=== PATIENT | female | born 1990 | race American Indian/Alaskan Native ===

== ENCOUNTER 2018-03-10 01:37 | Inpatient (IN) | payer OTHER ==
[2018-03-10] MEDS ORDERED: LACTATED RINGERS 1,000 ML IV ONE (03:12)
[2018-03-10] MEDS ORDERED: SUBLIMAZE IV ONE ×2 (03:12→06:10)
[2018-03-10] MEDS ORDERED: POLYCILLIN/NS 2 GM/100 ML 2 GM/100 ML BAG IV ONE (03:20)
[2018-03-10] MEDS ORDERED: POLYCILLIN/NS 2 GM/100 ML 2 GM/100 ML BAG IV SCH (03:30)
[2018-03-10] MEDS: LACTATED RINGERS 1,000 ML IV SCH ×2 (03:32→08:44)
[2018-03-10] MEDS ORDERED: PITOCin/NS 30 UNIT/500ML 30 UNITS/500 ML BAG IV SCH (04:00)
[2018-03-10 04:01] LABS: Hematocrit 33.2 % (30.3-42.9); Hemoglobin 11.1 gm/dl (10.1-14.3); Mean Corpuscular HGB Conc 34 % (30-34); Mean Corpuscular Volume 75 fl (79-97); Platelet Count 396 K/mm3 (140-440); Red Blood Count 4.44 M/mm3 (3.65-5.03); Red Cell Distribution Width 17.8 % (13.2-15.2)
[2018-03-10 04:07] LABS: Mean Corpuscular Hemoglobin 25 pg (28-32)
[2018-03-10] MEDS ORDERED: SUBLIMAZE ONE ×2 (06:09→12:50)
[2018-03-10] MEDS ORDERED: AMPICILLIN/NS 1 GM/50 ML 1 GM/50 ML BAG IV SCH (07:30)
[2018-03-10] MEDS ORDERED: SUBLIMAZE IV SCH (08:00)
[2018-03-10] MEDS ORDERED: PITOCin/NS 20 UNIT/1000ML DRIP 20,000 MILLIUNITS/1,000 ML BAG IV ONE (08:37)
[2018-03-10] MEDS ORDERED: STADOL IV PRN (08:48)
[2018-03-10] MEDS ORDERED: ePHEDrine SULFATE IV PRN (10:31)
[2018-03-10] MEDS ORDERED: NARCAN 2 MG/2 ML IV PRN (10:31)
[2018-03-10] MEDS ORDERED: fentaNYL-BUPIV 2 MCG/ML-0.125% 200 MCG/100 ML BAG EPIDURAL SCH (11:00)
--- NOTE | 2018-03-10 11:06 | Anesthesia Consultation ---
Anesthesia Consult and Med Hx Date of service: 03/10/18 - Airway Anesthetic Teeth Evaluation: Good ROM Head & Neck: Adequate Mental/Hyoid Distance: Adequate Mallampati Class: Class II Intubation Access Assessment: Probably Good - Pulmonary Exam CTA: Yes - Cardiac Exam Cardiac Exam: RRR - Pre-Operative Health Status ASA Pre-Surgery Classification: ASA2 Proposed Anesthetic Plan: Epidural, Spinal - Pulmonary Hx Smoking: No Hx Asthma: No COPD: No Hx Pneumonia: No - Cardiovascular System Hx Hypertension: No - Central Nervous System Hx Seizures: No Hx Psychiatric Problems: No - Endocrine Hx Renal Disease: No Hx End Stage Renal Disease: No Hx Hypothyroidism: No Hx Hyperthyroidism: No - Hematic Hx Anemia: No Hx Sickle Cell Disease: No - Other Systems Hx Alcohol Use: Yes (occasional, social)
[2018-03-10] MEDS ORDERED: BRETHINE ONE (11:11)
[2018-03-10] MEDS ORDERED: DEMEROL IV PRN (11:28)
[2018-03-10] MEDS ORDERED: BICITRA PO ONE (11:28)
[2018-03-10] MEDS ORDERED: PEPCID IV ONE (11:28)
[2018-03-10] MEDS ORDERED: REGLAN IV ONE (11:28)
[2018-03-10] MEDS ORDERED: XYLOCAINE MPF 2% ONE ×4 (11:52→13:49)
--- NOTE | 2018-03-10 11:58 | History and Physical Report ---
History of Present Illness Date of examination: 03/10/18 Date of admission: 03/10/18 01:44 Chief complaint: rupture of membranes History of present illness: Pt is a 28 year old primigravida TOY 03/15/18 at 39w2d who presents with rupture of membranes last night around 2300 pm. She was noted to be 1 cm dilated on admission, so pitocin induction was started. She denies vaginal bleeding. She has had care at [facility] since 6 wks complicated by chlamydia treated with a negative test of cure in Aug 2017, sickle cell trait and GBS positive status. 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: chlamydia (treated with negative test of cure ) Family/Genetic History: diabetes Social history: no significant social history - Obstetrical History Expected Date of Delivery: 03/15/18 Actual Gestation: 39 Week(s) 2 Day(s) : 1 Medications and Allergies Allergies Allergy/AdvReac Type Severity Reaction Status Date / Time No Known Allergies Allergy Verified 03/10/18 03:17 Home Medications Medication Instructions Recorded Confirmed Last Taken Type No Known Home Medications [No 03/10/18 03/10/18 Unknown History Reported Home Medications] Active Meds: Active Medications Butorphanol Tartrate (Stadol) 2 mg IV Q2H PRN PRN Reason: Labor Pain Last Admin: 03/10/18 08:58 Dose: 2 mg Ephedrine Sulfate (Ephedrine Sulfate) 10 mg IV Q2M PRN PRN Reason: Hypotension Fentanyl (Sublimaze) 100 mcg IV Q2HR [facility] Lactated Ringer's (Lactated Ringers) 1,000 mls @ 125 mls/hr IV DIRECT [facility] Last Admin: 03/10/18 08:44 Dose: 999 mls/hr Oxytocin/Sodium Chloride (Pitocin/Ns 30 Unit/500ml) 30 units in 500 mls @ 1 mls /hr IV TITR [facility]; Protocol Last Titration: 03/10/18 07:30 Dose: 4 milliunits/min, 4 mls/hr Ampicillin Sodium (Ampicillin/Ns 1 Gm/50 Ml) 1 gm in 50 mls @ 100 mls/hr IV Q4H [facility]; Protocol Last Admin: 03/10/18 08:43 Dose: 100 mls/hr Fentanyl/Bupivacaine/Sodium Chlor (Fentanyl-Bupiv 2 Mcg/Ml-0.125%) 200 mcg in 100 mls @ 12 mls/hr EPIDURAL TITR [facility]; Protocol Cefazolin Sodium (Ancef/Sterile Water 2 Gm/20 Ml) 2 gm in 20 mls @ 80 mls/hr IV PREOP NR; Protocol Stop: 03/10/18 23:00 Lactated Ringer's (Lactated Ringers) 1,000 mls @ 2,250 mls/hr IV PREOP [facility] Stop: 03/11/18 12:27 Oxytocin/Sodium Chloride (Pitocin/Ns 20 Unit/1000ml Drip) 20 units in 1,000 mls @ 0 mls/hr IV TITR [facility] Meperidine HCl (Demerol) 25 mg IV ONCE PRN PRN Reason: Shivering Naloxone HCl (Narcan 2 Mg/2 Ml) 0.2 mg IV Q5M PRN PRN Reason: Respiratory sedation Review of Systems All systems: negative - Vital Signs Vital signs: Vital Signs Pulse Pulse Ox 113 H 98 03/10/18 01:53 03/10/18 01:53 Temp Pulse Resp BP Pulse Ox 99.0 F 114 H 22 130/69 78 L 03/10/18 07:15 03/10/18 11:59 03/10/18 07:15 03/10/18 11:59 03/10/18 10:56 - Physical Exam Breasts: Positive: deferred Cardiovascular: Regular rate Lungs: Positive: Clear to auscultation Abdomen: Positive: soft (gravid ) Uterus: Positive: enlarged (gravid ) Extremities: Positive: normal - Obstetrical FHR: category 2 Uterine Contraction Monitor Mode: External Cervical Dilatation: 7 Cervical Effacement Percentage: 80 station: -1 Uterine Contraction Frequency (min): q 1-2 min Uterine Contraction Pattern: Regular Uterine Tone Measurement Phase: Resting Uterine Contraction Intensity: Moderate Results Result Diagrams: 03/10/18 02:10 Abnormal lab results 03/10/18 Range/Units 02:10 WBC 14.5 H (4.5-11.0) K/mm3 MCV 75 L (79-97) fl MCH 25 L (28-32) pg RDW 17.8 H (13.2-15.2) % All other labs normal. Assessment and Plan A: IUP at 39w2d Active labor PROM GBS positive status H/o Chlamydia this , treated with negative test of cure P: Admit to labor and delivery GBS prophylaxis Pitocin augmentation Closely monitor maternal and status
--- NOTE | 2018-03-10 11:59 | Event Note ---
Date: 03/10/18 Pt with tachysystole and deceleration to 50s. Pt given terbutaline with slow return to baseline 125. FSE placed. Continue to monitor clinical status closely.
[2018-03-10] MEDS ORDERED: LACTATED RINGERS 1,000 ML IV SCH (12:00)
[2018-03-10] MEDS ORDERED: ANCEF/STERILE WATER 2 GM/20 ML 2 GM/20 ML SYRINGE IV NR (12:00)
[2018-03-10] MEDS ORDERED: PITOCin/NS 20 UNIT/1000ML DRIP 20 UNITS/1,000 ML BAG IV SCH ×2 (12:00→17:57)
[2018-03-10] MEDS ORDERED: NACL 0.9% IR ONE (12:30)
[2018-03-10] MEDS ORDERED: WATER FOR IRRIG STERILE IR ONE (12:30)
[2018-03-10] MEDS ORDERED: VERSED ONE (12:48)
[2018-03-10] MEDS ORDERED: KETALAR ONE (12:55)
--- NOTE | 2018-03-10 13:46 | Procedure Note ---
OB Delivery Note - Delivery Date of Delivery: 03/10/18 Surgeon: RAVINDER BLACKWOOD Estimated blood loss: other (1200 mL) - Section Preop diagnosis: nonreassuring FHR tracing Postop diagnosis: other (Same, CPD) section procedure: section Disposition: PACU Complications: intra-op hemorrhage, uterine atony Narrative: Please see operative report. - A at 1 minute: 8 at 5 minutes: 9 Infant Gender: Male (3852g (8lb 7.8 oz) @ 1250 pm)
--- NOTE | 2018-03-10 13:54 | Operative Report ---
Operative Report Operative Report: Date of procedure: March 10, 2018 Preoperative diagnosis: 1) IUP at 39w2d 2) Nonreassuring heart tones 3) PROM Postoperative diagnosis: Same 4) Cephalopelvic disproportion Procedure: Primary low transverse section Surgeon: Laura Ocasio M.D. Anesthesia: Epidural Findings: 1) Viable male , Apgars 8 and 9, weight 3852g, (8 lb 7.8 oz) in cephalic presentation, loose nuchal cord x 1 2) Normal-appearing uterus ovaries and tubes Estimated blood loss: 1200 mL IV fluids: 1300 mL Urine output: 350 mL, clear at the end of the procedure Drains: Leiva to gravity Specimens: Placenta to pathology Complications: Uterine atony treated with an additional 20 units of pitocin in the IV fluids, intraoperative hemorrhage Disposition: Stable to PACU Indication for procedure: Pt is a 28 year old primigravida at 39w2d who was admitted with rupture of membranes. She made cervical change to 8 cm dilation whenthe FHTs began to have deep variable decelerations to the 50-60s with slow return to baseline remote from delivery. The decision was made to proceed with delivery. Operation in detail: After the risks, benefits, alternatives and complications were explained to the patient she gave informed consent for the procedure. She was subsequently taken to the operating room where epidural anesthesia was noted to be adequate. She was subsequently placed in the dorsal supine position with leftward tilt and prepped and draped in a normal sterile fashion. heart tones were noted to be in the 145s prior to incision. A timeout was performed. A Pfannenstiel skin incision was made with the knife and carried down to the layer of the fascia with the Bovie. The fascia was incised in the midline and the fascial incision was extended bilaterally with the Bovie. Attention was then turned to the superior aspect of the incision which was grasped with two Kochers, tented up, and dissected off the rectus muscles. Attention was then turned to the inferior aspect of the incision which was grasped with two Kochers , tented up and dissected off the rectus muscles. The rectus muscles were then in the midline and partially transected for adequate visualization. The peritoneum was then entered bluntly. The peritoneal incision was extended with good visualization of the bladder. The peritoneal incision was then stretched. An Kem self-retaining retractor was placed for visualization. The bladder blade was placed. The vesicouterine peritoneum was grasped with smooth pickups and incised with Metzenbaum scissors. Metzenbaum scissors were used to extend the incision bilaterally. The bladder flap was then created digitally and the bladder blade was replaced. A transverse incision was made in the lower uterine segment with a knife and extended bilaterally with the bandage scissors. The head was delivered without difficulty followed by shoulders and body. was bulb suctioned at delivery. The cord was clamped and cut and the was handed to NICU staff in attendance. Cord blood was collected. The placenta was then delivered manually. The uterus was then exteriorized and cleared of all clots and debris. The uterus was noted to be atonic. An additional 20 units of pitocin were added to the IV fluids with improvement in uterine tone. The hysterotomy was then reapproximated with 0 Vicryl in a running locked fashion. A second layer of the same suture was used in imbricating fashion. Additional figure of eights of 2-0 Vicryl were used on the left side of the hysterotomy to achieve hemostasis. The hysterotomy was inspected and hemostasis was noted. The Kem self-retaining retractor was removed. The gutters were irrigated and cleared of all clots and debris. The hysterotomy was again inspected and noted to be hemostatic. Surgicel was placed over the hysterotomy. The peritoneum was reapproximated with 2-0 Vicryl in a running fashion incorporating the rectus muscles. The cut edges of the rectus muscles were covered with Surgicel. The fascia was reapproximated with 0 Vicryl in a running fashion. The subctaneous tissue was reapproximated with 3-0 Vicryl in a running fashion. The skin was reapproximated with 4-0 Vicryl in a subcuticular fashion. The incision was then covered with steri strips and a pressure dressing. The procedure was then ended. The patient tolerated the procedure well and was taken to the PACU in stable condition. All instrument, lap, and needle counts were correct 3. The patient was noted to be tachycardic to the 140-150s during the case and to be hypertensive. She will have a CBC, PIH panel and TSH in the PACU.
[2018-03-10] MEDS ORDERED: PHENERGAN PO PRN (14:03)
[2018-03-10] MEDS ORDERED: NARCAN 0.4 MG/1 ML IV PRN ×2 (14:03→17:57)
[2018-03-10] MEDS ORDERED: PHENERGAN PR PRN (14:03)
[2018-03-10] MEDS ORDERED: ZOFRAN IV PRN ×2 (14:03→17:57)
[2018-03-10] MEDS ORDERED: DILAUDID IV PRN ×2 (14:03)
--- NOTE | 2018-03-10 14:05 | Post Anesthesia Evaluation ---
- Post Anesthesia Evaluation Patient Participated: Yes Airway Patent: Yes Stable Respiratory Function: Yes Nausea/Vomiting: No Temp > 96.8F: Yes Pain Manageable: Yes Adequeate Hydration: Yes Anesthesia Complications: No Block Receding Appropriately: Yes Other Comments: episode of intraoperative tachycardia currently controlled with intraoperative labetalol
[2018-03-10] MEDS ORDERED: NORMODYNE IV PRN (14:06)
[2018-03-10] MEDS ORDERED: MAGNESIUM SULFATE 4GM/100ML 4 GM/100 ML BAG IV ONE ×2 (14:33→17:57)
[2018-03-10] MEDS ORDERED: MAGNESIUM SULFATE 40GM/1000ML 40 GM/1,000 ML BAG IV ONE (14:37)
[2018-03-10] MEDS ORDERED: MAGNESIUM SULFATE 40GM/1000ML 40 GM/1,000 ML BAG IV SCH ×2 (15:00→17:57)
[2018-03-10] MEDS ORDERED: SODIUM CHLORIDE FLUSH SYRINGE 10 ML IV NR ×2 (15:00→17:57)
[2018-03-10 15:18] LABS: Alanine Aminotransferase 8 units/L (7-56); Uric Acid 4.9 mg/dL (3.5-7.6)
[2018-03-10 15:21] LABS: INR 0.98 (0.87-1.13)
[2018-03-10 15:49] LABS: Hematocrit 27.7 % (30.3-42.9); Hemoglobin 8.9 gm/dl (10.1-14.3); Mean Corpuscular HGB Conc 32 % (30-34); Mean Corpuscular Volume 77 fl (79-97); Platelet Count 332 K/mm3 (140-440); Red Blood Count 3.62 M/mm3 (3.65-5.03); Red Cell Distribution Width 17.8 % (13.2-15.2)
[2018-03-10 15:57] LABS: Mean Corpuscular Hemoglobin 25 pg (28-32)
[2018-03-10] MEDS: TORADOL IV SCH (16:50)
[2018-03-10] MEDS ORDERED: TUCKS PAD TP PRN (17:57)
[2018-03-10] MEDS ORDERED: CALCIUM GLUCONATE IV ONE (17:57)
[2018-03-10] MEDS ORDERED: TORADOL IV PRN (17:57)
[2018-03-10] MEDS ORDERED: LANSINOH TP PRN (17:57)
[2018-03-10] MEDS ORDERED: APRESOLINE IV PRN (17:57)
[2018-03-10] MEDS ORDERED: MILK OF MAGNESIA PO PRN (17:57)
--- NOTE | 2018-03-10 18:59 | Event Note ---
Date: 03/10/18 Late entry secondary to inability to access [employer] remotely. During this patient's section she became acutely tachycardic to the 130s to 150s. Her initial laboratories showed a leukocytosis of 14.5 which increased to 34.5 postoperatively. An infectious etiology is at the top of the differential as a possible cause, including endometritis. Blood cultures 2 and urine cultures have been ordered. The patient will be placed on ampicillin, gentamicin, and clindamycin prophylactically. We will continue to monitor her clinical status and adjust her medication regimen as indicated.
[2018-03-10] MEDS: POLYCILLIN/NS 2 GM/100 ML 2 GM/100 ML BAG IV SCH (19:15)
[2018-03-10] MEDS: GARAMYCIN/NS 100 MG/100 ML 100 MG/100 ML BAG IV SCH (20:30)
[2018-03-10] MEDS: CLEOCIN 600 MG/50 mL 600 MG/50 ML BAG IV SCH (21:24)
[2018-03-11] MEDS: TORADOL IV SCH ×3 (00:14→18:14)
[2018-03-11] MEDS: POLYCILLIN/NS 2 GM/100 ML 2 GM/100 ML BAG IV SCH ×5 (00:15→23:51)
[2018-03-11] MEDS: LACTATED RINGERS 1,000 ML IV SCH ×2 (02:41→15:09)
[2018-03-11] MEDS: GARAMYCIN/NS 100 MG/100 ML 100 MG/100 ML BAG IV SCH ×3 (04:26→19:15)
[2018-03-11] MEDS: MYLICON PO PRN ×2 (04:33→22:18)
[2018-03-11] MEDS: CLEOCIN 600 MG/50 mL 600 MG/50 ML BAG IV SCH (05:58)
[2018-03-11] MEDS ORDERED: DERMOPLAST TP PRN (06:01)
--- NOTE | 2018-03-11 08:47 | Progress Note ---
Assessment and Plan - Patient Problems (1) delivery delivered Current Visit: Yes Status: Acute Plan to address problem: Continue to monitor closely for signs of sepsis Routine postoperative care Subjective - Subjective Date of service: 03/11/18 Interval history: Patient without complaints. Reports having flatus. Tolerating regular diet. Patient currently receiving IV antibiotics. Patient reports: appetite normal, pain well controlled : doing well Objective - Vital Signs Latest vital signs: Vital Signs Temp Pulse Resp BP BP Pulse Ox 03/11/18 06:33 98.4 F 91 H 18 101/56 03/11/18 04:20 98.3 F 99 H 20 112/58 03/11/18 02:15 99 F 95 H 20 105/50 96 03/11/18 00:00 98.9 F 103 H 18 111/59 97 03/10/18 22:14 99 F 102 H 18 113/57 03/10/18 20:20 98.8 F 97 H 16 124/71 124/71 98 03/10/18 18:47 89 20 115/75 03/10/18 17:00 98.4 F 100 H 20 119/61 03/10/18 16:50 20 03/10/18 15:05 98.9 F 107 H 48 H 120/79 95 03/10/18 14:55 106 H 21 109/62 95 03/10/18 14:40 102 H 20 121/64 97 03/10/18 14:25 103 H 20 127/78 97 03/10/18 14:10 127 H 21 127/76 98 03/10/18 14:05 111 H 17 119/78 98 03/10/18 14:00 99.0 F 115 H 21 138/83 98 03/10/18 13:55 108 H 18 145/92 98 03/10/18 12:15 137 H 146/78 03/10/18 12:13 112 H 69 L 03/10/18 12:10 146 H 150/101 03/10/18 12:05 123 H 132/77 03/10/18 11:59 114 H 130/69 03/10/18 11:56 114 H 133/75 03/10/18 11:35 121 H 217/113 03/10/18 11:30 134 H 155/117 03/10/18 11:27 130 H 185/112 03/10/18 11:15 111 H 116/74 05/28/18 11:08 100 H 109/62 03/10/18 11:04 105 H 116/64 03/10/18 11:01 100 H 108/55 03/10/18 10:59 87 107/55 03/10/18 10:56 85 78 L 03/10/18 10:53 99 H 126/73 03/10/18 10:52 97 H 128/73 03/10/18 10:51 89 98 03/10/18 10:50 97 H 0 L 03/10/18 10:46 58 L 100 Intake and Output 03/10/18 03/11/18 03/11/18 22:59 06:59 14:59 Intake Total 710 460 Output Total 2600 2900 Balance -1890 -2440 Intake: IV 250 100 CLEOCIN 600 MG/50 mL 600 50 mg In 50 ml @ 100 mls/hr IV Q8H [facility] Rx#:[id number] GARAMYCIN/NS 100 MG/100 100 ML 100 mg In 100 ml @ 200 mls/hr IV Q8H [facility] Rx#: [id number] POLYCILLIN/NS 2 GM/100 ML 100 100 2 gm In 100 ml @ 100 mls /hr IV Q6HR [facility] Rx#: [id number] Oral 360 Intake, Free Water 100 360 Output: Urine 2600 2900 Indwelling Catheter 2100 2900 Other: Total, Intake Amount 360 Total, Output Amount 900 800 Weight 83.915 kg - Exam Incision: Present: dressed - Labs Labs: Abnormal lab results 03/10/18 03/10/18 03/10/18 Range/Units 14:36 14:36 23:28 WBC 34.5 H (4.5-11.0) K/mm3 RBC 3.62 L (3.65-5.03) M/mm3 Hgb 8.9 L (10.1-14.3) gm/dl Hct 27.7 L (30.3-42.9) % MCV 77 L (79-97) fl MCH 25 L (28-32) pg RDW 17.8 H (13.2-15.2) % Magnesium 4.10 H (1.7-2.3) mg/dL Lactate Dehydrogenase 249 H (91-180) units/L 03/11/18 03/11/18 Range/Units 02:00 05:01 WBC (4.5-11.0) K/mm3 RBC (3.65-5.03) M/mm3 Hgb 9.0 L (10.1-14.3) gm/dl Hct 27.0 L (30.3-42.9) % MCV (79-97) fl MCH (28-32) pg RDW (13.2-15.2) % Magnesium 3.90 H (1.7-2.3) mg/dL Lactate Dehydrogenase (91-180) units/L
[2018-03-11] MEDS: FEOSOL PO SCH (10:30)
--- NOTE | 2018-03-11 10:59 | Query-Anemia ---
DeaLaura Vergara Date:__03/11/2018 Echo Tech/CDS:__Mary Phone#:__[phone] Exercise your independent professional judgment when responding to this query. Questions asked do not imply a particular answer is desired or expected. We greatly appreciate your clarification on this issue. Clinical Documentation States: 28 Year old female was admitted on 03/10/2018 with rupture of membranes last night around 2300 pm. The Operative (Dr. Ocasio) Report states "Procedure: Primary low transverse section Estimated blood loss: 1200 mL." Clinical Findings Show: 03/10 (02:10) 03/10 (14:36) 03/11 Hgb 11.1 8.9 9.0 Hct 33.2 27.7 27.0 Etiology: [X ] Anemia due to acute blood loss [ ] Anemia due to chronic blood loss [ ] Anemia secondary to ESRD [ ] Anemia secondary to neoplastic disease [ ] Iron deficiency anemia due to malabsorption [ ] GI Bleed from: [ ] Anemia of chronic disease ,Other: [ ] Precipitous Drop in Hemoglobin [ X] Precipitous Drop in Hematocrit [ ] Other: [ ] Unable to determine [ ] Comment/Explanation: Present on Admission: [ ] Yes (Y) [ ] Clinically undeterminable (W) [ X ] No (N) Please also document response in your Progress Notes and/or Discharge Summary and indicate if the condition was present on admission. JOSÉ
[2018-03-11] MEDS: PERCOCET 5/325 PO PRN ×2 (11:11→22:17)
[2018-03-11] MEDS ORDERED: M-M-R II VACCINE SUB-Q ONE (14:14)
[2018-03-11] MEDS ORDERED: BOOSTRIX IM ONE (14:14)
[2018-03-11] MEDS: MOTRIN PO PRN (23:52)
[2018-03-12] MEDS: GARAMYCIN/NS 100 MG/100 ML 100 MG/100 ML BAG IV SCH ×3 (02:16→20:00)
[2018-03-12] MEDS: POLYCILLIN/NS 2 GM/100 ML 2 GM/100 ML BAG IV SCH ×2 (05:04→12:32)
[2018-03-12] MEDS: MOTRIN PO PRN ×3 (05:04→22:18)
[2018-03-12 10:15] LABS: Hematocrit 21.8 % (30.3-42.9); Hemoglobin 7.2 gm/dl (10.1-14.3); Mean Corpuscular HGB Conc 33 % (30-34); Mean Corpuscular Volume 75 fl (79-97); Platelet Count 319 K/mm3 (140-440); Red Cell Distribution Width 17.8 % (13.2-15.2)
[2018-03-12 10:16] LABS: Mean Corpuscular Hemoglobin 25 pg (28-32)
[2018-03-12] MEDS: FEOSOL PO SCH (10:54)
[2018-03-12 11:50] LABS: Anisocytosis 1+; Band Neutrophils # (Manual) 0.2 K/mm3; Eosinophils % (Manual) 0 % (0.0-4.3); Hypochromasia 1+; Target Cells Rare; Total Cells Counted 100
[2018-03-12 11:51] LABS: Platelet Estimate Cons
--- NOTE | 2018-03-12 15:34 | Progress Note ---
Assessment and Plan A/P POD# 2 s/p primary csec doing well + gas continue routine Post op orders Subjective - Subjective Date of service: 03/12/18 Principal diagnosis: s/p primary Patient reports: appetite normal, voiding normally, pain well controlled, flatus , ambulating normally : doing well, nursing well Objective - Vital Signs Latest vital signs: Vital Signs Temp Pulse Resp BP BP Pulse Ox 03/12/18 09:08 98.3 F 93 H 18 113/51 95 03/12/18 05:04 18 03/12/18 00:00 98.4 F 92 H 18 110/50 03/11/18 22:17 18 03/11/18 15:52 97.3 F L 103 H 18 101/46 97 Intake and Output 03/11/18 03/12/18 03/12/18 23:59 07:59 15:59 Intake Total 440 300 Balance 440 300 Intake: IV 200 300 GARAMYCIN/NS 100 MG/100 100 100 ML 100 mg In 100 ml @ 200 mls/hr IV Q8H [facility] Rx#: [id number] POLYCILLIN/NS 2 GM/100 ML 100 200 2 gm In 100 ml @ 100 mls /hr IV Q6HR [facility] Rx#: [id number] Oral 240 Other: Total, Intake Amount 240 # Voids Void 1 1 - Exam Breasts: Present: normal Cardiovascular: Present: Regular rate, Normal S1 Lungs: Present: Clear to auscultation, Normal air movement Abdomen: Present: normal appearance, soft, normal bowel sounds. Absent: distention, tenderness, guarding Vulva: both: normal Uterus: Present: normal, firm, fundal height below umbilicus. Absent: bogginess , tenderness Extremities: Present: normal Deep Tendon Reflex Grade: Normal +2 Incision: Present: normal, dry, intact - Labs Labs: Abnormal lab results 03/11/18 03/12/18 Range/Units 15:23 09:28 WBC 22.3 H (4.5-11.0) K/mm3 RBC 2.90 L (3.65-5.03) M/mm3 Hgb 7.2 L (10.1-14.3) gm/dl Hct 21.8 L (30.3-42.9) % MCV 75 L (79-97) fl MCH 25 L (28-32) pg RDW 17.8 H (13.2-15.2) % Seg Neutrophils # Man 14.9 H (1.8-7.7) K/mm3 Lymphocytes # (Manual) 5.6 H (1.2-5.4) K/mm3 Monocytes # (Manual) 1.3 H (0.0-0.8) K/mm3 Basophils # (Manual) 0.2 H (0.0-0.1) K/mm3 Magnesium 3.80 H (1.7-2.3) mg/dL
[2018-03-12] MEDS: PERCOCET 5/325 PO PRN (22:17)
[2018-03-13] MEDS: GARAMYCIN/NS 100 MG/100 ML 100 MG/100 ML BAG IV SCH (05:14)
[2018-03-13] MEDS: MOTRIN PO PRN (06:38)
[2018-03-13] MEDS: PERCOCET 5/325 PO PRN ×2 (06:38→22:58)
--- NOTE | 2018-03-13 07:58 | Consultation ---
History of Present Illness - Reason for Consult Consult date: 03/13/18 Leukocytosis Requesting physician: RAVINDER BLACKWOOD - History of Present Illness HPI: 28 year old F PMH sickle cell trait, primigravida, care significant for Chlamydia infection treated with a negative test of cure in Aug 2017 and GBS positive status, also treated, who presented to [facility] 03/10 with premature rupture of membranes. Prior to admission she denies F/C, N/V/D, cough , SOB, URI symptoms, CP, dysuria, ARCE, skin rashes. On admission her VS were T 99.1, pulse 113, SO2 98%, BP 125/76. WBC was 14.5. She underwent on . During the she was noted to be tachycardic and hypertensive. Post-op WBC was 34.5. She was started on ampicillin, clindamycin and gentamicin on 03/10 for suspected post- endometritis. WBC went down to 22.3 on 03/12. Urine and blood culture have been negative so far. Pt has been afebrile during the admission. Pt is currently on gentamicin. ID is consulted to help with further antibiotic management. Microbiology: Blood cultures: 03/10 NGTD Urine cultures: 03/10 MGTD Current Antimicrobials: Gentamicin 03/10- Prior antimicrobials Ampicillin 03/10-03/12 Clindamycin 03/10-03/11 Past History Past Medical History: No medical history Past Surgical History: No surgical history Social history: no significant social history Medications and Allergies Allergies Allergy/AdvReac Type Severity Reaction Status Date / Time No Known Allergies Allergy Verified 03/10/18 03:17 Home Medications Medication Instructions Recorded Confirmed Last Taken Type Fluconazole [Diflucan] 150 mg PO ONCE #1 tablet 03/11/18 Unknown Rx Active Meds: Active Medications Benzocaine/Menthol (Dermoplast) 1 spray TP PRN PRN PRN Reason: Labor Pain Last Admin: 03/11/18 06:09 Dose: 1 spray Ephedrine Sulfate (Ephedrine Sulfate) 10 mg IV Q2M PRN PRN Reason: Hypotension Ferrous Sulfate (Feosol) 325 mg PO QDAY [facility] Last Admin: 03/12/18 10:54 Dose: 325 mg Gentamicin Sulfate (Tobramycin/Gentamicin Pharmacy To Dose) 1 each IV PKCONSULT [facility] Hydralazine HCl (Apresoline) 5 mg IV Q30MIN PRN PRN Reason: Hypertension Hydromorphone HCl (Dilaudid) 0.5 mg IV Q5M PRN PRN Reason: Breakthrough Pain Hydromorphone HCl (Dilaudid) 0.5 mg IV Q4H PRN PRN Reason: breakthrough pain > 7/10 Fentanyl/Bupivacaine/Sodium Chlor (Fentanyl-Bupiv 2 Mcg/Ml-0.125%) 200 mcg in 100 mls @ 12 mls/hr EPIDURAL TITR [facility]; Protocol Magnesium Sulfate (Magnesium Sulfate 40gm/1000ml) 40 gm in 1,000 mls @ 25 mls/ hr IV DIRECT [facility] Last Admin: 03/10/18 15:13 Dose: 1 gm/hr, 25 mls/hr Lactated Ringer's (Lactated Ringers) 1,000 mls @ 125 mls/hr IV DIRECT [facility] Last Admin: 03/11/18 15:09 Dose: 125 mls/hr Magnesium Sulfate (Magnesium Sulfate 40gm/1000ml) 40 gm in 1,000 mls @ 25 mls/ hr IV DIRECT [facility] Oxytocin/Sodium Chloride (Pitocin/Ns 20 Unit/1000ml Drip) 20 units in 1,000 mls @ 250 mls/hr IV DIRECT [facility] Gentamicin Sulfate/Sodium Chloride (Garamycin/Ns 100 Mg/100 Ml) 100 mg in 100 mls @ 200 mls/hr IV Q8H [facility] Last Admin: 03/13/18 05:14 Dose: 200 mls/hr Ibuprofen (Motrin) 800 mg PO Q6H PRN PRN Reason: Pain, Mild (1-3) Last Admin: 03/13/18 06:38 Dose: 800 mg Ketorolac Tromethamine (Toradol) 30 mg IV Q6HR [facility] Stop: 03/15/18 17:59 Last Admin: 03/11/18 18:14 Dose: 30 mg Labetalol HCl (Normodyne) 10 mg IV ONCE PRN PRN Reason: Tachyarrhythmias Magnesium Hydroxide (Milk Of Magnesia) 30 ml PO QHS PRN PRN Reason: Constip Unrelieved By Senna Multi-Ingredient Ointment (Lansinoh) 1 applic TP PRN PRN PRN Reason: dryness/cracking Naloxone HCl (Narcan 2 Mg/2 Ml) 0.2 mg IV Q5M PRN PRN Reason: Respiratory sedation Naloxone HCl (Narcan 0.4 Mg/1 Ml) 0.2 mg IV Q2MIN PRN PRN Reason: Res Rate </= 8 or 02 SAT < 92% Naloxone HCl (Narcan 0.4 Mg/1 Ml) 0.1 mg IV Q2MIN PRN PRN Reason: Res Rate </= 8 or 02 SAT < 92% Ondansetron HCl (Zofran) 4 mg IV Q8H PRN PRN Reason: Nausea And Vomiting Ondansetron HCl (Zofran) 4 mg IV Q8H PRN PRN Reason: Nausea And Vomiting Oxycodone/Acetaminophen (Percocet 5/325) 2 tab PO Q4H PRN PRN Reason: Pain, Moderate (4-6) Last Admin: 03/13/18 06:38 Dose: 2 tab Promethazine HCl (Phenergan) 25 mg PO Q6H PRN PRN Reason: Nausea And Vomiting Promethazine HCl (Phenergan) 25 mg NV Q6H PRN PRN Reason: Nausea And Vomiting Simethicone (Mylicon) 80 mg PO Q6H PRN PRN Reason: Gas pain Last Admin: 03/11/18 22:18 Dose: 80 mg Witch Kiara/Glycerin (Tucks Pad) 1 each TP PRN PRN PRN Reason: Hemorrhoids/cleansing/soothing Last Admin: 03/11/18 04:31 Dose: 1 each Review of Systems Constitutional: other (As per HPI.) Physical Examination - Physical Exam Narrative exam: General appearance: Pt in NAD, A&Ox3, conversant. Heent: NC/AT. Perrla. Eomi. Moist mucous membranes. Oropharynx is clear. Neck: Trachea midline; supple, no thyromegaly or lymphadenopathy Lungs: CTA, with normal respiratory effort and no intercostal retractions CV: RRR, S1,S2. Abdomen: +BS. Soft, mildly distended. C section wound in lower abdomen, covered with Steri-strips. No jhonny-wound erythema, no drainage. Extremities: No c/c/e. Skin: Normal temperature, turgor and texture; no rash, ulcers or subcutaneous nodules Psych: Appropriate affect, alert and oriented to person, place and time. Neuro: alert and oriented x 3. Moving all extremities. Non-focal. Lines: PIV. - Constitutional Vitals: Vital Signs Temp Pulse Resp BP Pulse Ox 97.9 F 91 H 18 121/77 98 03/12/18 23:14 03/12/18 23:14 03/12/18 23:14 03/12/18 23:14 03/12/18 15:10 Temperature -Last 24 Hours Temperature 97.9 F Temperature 98.5 F Temperature 98.3 F Results - Labs CBC & Chem 7: 03/12/18 09:28 03/10/18 14:36 Labs: Abnormal lab results 03/12/18 Range/Units 09:28 WBC 22.3 H (4.5-11.0) K/mm3 RBC 2.90 L (3.65-5.03) M/mm3 Hgb 7.2 L (10.1-14.3) gm/dl Hct 21.8 L (30.3-42.9) % MCV 75 L (79-97) fl MCH 25 L (28-32) pg RDW 17.8 H (13.2-15.2) % Seg Neutrophils # Man 14.9 H (1.8-7.7) K/mm3 Lymphocytes # (Manual) 5.6 H (1.2-5.4) K/mm3 Monocytes # (Manual) 1.3 H (0.0-0.8) K/mm3 Basophils # (Manual) 0.2 H (0.0-0.1) K/mm3 Assessment and Plan Assessment: 1) Leukocytosis present on admission. Worsened after surgery. Improving since . Multifactorial: reactive post-op, ?endometritis. - care significant for Chlamydia and GBS. Both treated as per report. 2) with premature rupture of membranes, s/p 03/10. 3) Anemia. Recommendations: -Stop gentamicin. -Start unasyn. -Repeat CBC and BMP today. -Follow-up blood cultures, urine culture. -If WBC continues to trend down, ok to d/c in AM on augmentin 875 mg PO BID for 7-10 days. -d/w pt, RN. Thank you for your consultation. Lori Butler MD Infectious Diseases Specialist [facility], [place], [facility] ([facility]) M [phone]
[2018-03-13 09:30] LABS: Hematocrit 21.8 % (30.3-42.9); Hemoglobin 7.1 gm/dl (10.1-14.3); Mean Corpuscular HGB Conc 33 % (30-34); Mean Corpuscular Volume 76 fl (79-97); Platelet Count 360 K/mm3 (140-440); Red Blood Count 2.86 M/mm3 (3.65-5.03); Red Cell Distribution Width 17.9 % (13.2-15.2)
[2018-03-13 09:33] LABS: Mean Corpuscular Hemoglobin 25 pg (28-32)
[2018-03-13 09:55] LABS: BUN/Creatinine Ratio 8; Blood Urea Nitrogen 6 mg/dL (7-17); Calcium 7.8 mg/dL (8.4-10.2); Hemolysis Index 5
[2018-03-13] MEDS: UNASYN/NS 3 GM/100 ML 3 GM/100 ML BAG IV SCH ×2 (11:45→18:50)
[2018-03-13] MEDS: FEOSOL PO SCH (11:46)
[2018-03-13 13:06] LABS: Basophils % (Manual) 0 % (0.0-1.8); Total Cells Counted 100
[2018-03-13 13:07] LABS: Anisocytosis 1+; Hypochromasia 1+; Large Platelets Rare; Platelet Estimate Cons; Target Cells Rare
--- NOTE | 2018-03-13 16:39 | Progress Note ---
Assessment and Plan O: Seen by ID: IV meds changed to Unasyn VSS AF Tachycardia improved A: Stable PP PP fever P: Routine PP care Subjective - Subjective Date of service: 03/13/18 Principal diagnosis: s/p primary Patient reports: appetite normal, voiding normally, pain well controlled, ambulating normally (Denies fever, pain, malaise, abd tenderness) [place]: doing well Objective - Vital Signs Latest vital signs: Vital Signs Temp Pulse Resp BP 03/13/18 08:08 97.8 F 76 20 03/12/18 23:14 97.9 F 91 H 18 121/77 Intake and Output 03/13/18 03/13/18 03/13/18 06:59 14:59 22:59 Intake Total 480 720 Balance 480 720 Intake: Oral 720 Intake, Free Water 480 Other: Total, Intake Amount 240 # Voids Void 1 1 - Exam Abdomen: Present: normal appearance, soft. Absent: distention, tenderness Uterus: Present: normal, firm, fundal height below umbilicus. Absent: bogginess , tenderness Extremities: Present: normal - Labs Labs: Abnormal lab results 03/13/18 03/13/18 Range/Units 09:06 09:06 WBC 17.3 H (4.5-11.0) K/mm3 RBC 2.86 L (3.65-5.03) M/mm3 Hgb 7.1 L (10.1-14.3) gm/dl Hct 21.8 L (30.3-42.9) % MCV 76 L (79-97) fl MCH 25 L (28-32) pg RDW 17.9 H (13.2-15.2) % Seg Neutrophils # Man 12.1 H (1.8-7.7) K/mm3 Monocytes # (Manual) 0.9 H (0.0-0.8) K/mm3 Carbon Dioxide 20 L (22-30) mmol/L BUN 6 L (7-17) mg/dL Calcium 7.8 L (8.4-10.2) mg/dL
[2018-03-14] MEDS: UNASYN/NS 3 GM/100 ML 3 GM/100 ML BAG IV SCH ×2 (01:38→06:45)
--- NOTE | 2018-03-14 07:44 | Progress Note ---
Assessment and Plan Assessment: 1) Leukocytosis present on admission. Worsened after surgery. Improving since . Multifactorial: reactive post-op, ?endometritis. - care significant for Chlamydia and GBS. Both treated as per report. 2) with premature rupture of membranes, s/p 03/10. 3) Anemia. Recommendations: -Ok to d/c on augmentin 875 mg PO BID for 7-10 days. -d/w pt, RN. Lori Butler MD Infectious Diseases Specialist [facility] ([facility]) M [phone] Subjective Date of service: 03/14/18 Principal diagnosis: s/p primary Interval history: Afebrile. Feels well. Denies N/V/D, cough, SOB, CP, dysuria, abdominal pain. Vaginal bleeding is mild, not foul smelling. Microbiology: Blood cultures: 03/10 NGTD Urine cultures: 03/10 neg Current Antimicrobials: Unasyn 03/13- Prior antimicrobials Ampicillin 03/10-03/12 Clindamycin 03/10-03/11 Gentamicin 03/10-03/13 Objective - Exam Narrative Exam: General appearance: Pt in NAD, A&Ox3, conversant. Heent: NC/AT. Perrla. Eomi. Moist mucous membranes. Oropharynx is clear. Neck: Trachea midline; supple, no thyromegaly or lymphadenopathy Lungs: CTA, with normal respiratory effort and no intercostal retractions CV: RRR, S1,S2. Abdomen: +BS. Soft, mildly distended. C section wound in lower abdomen, covered with Steri-strips. No jhonny-wound erythema, no drainage. Extremities: No c/c/e. Skin: Normal temperature, turgor and texture; no rash, ulcers or subcutaneous nodules Psych: Appropriate affect, alert and oriented to person, place and time. Neuro: alert and oriented x 3. Moving all extremities. Non-focal. Lines: PIV. - Constitutional Vitals: Vital Signs Temp Pulse Resp BP Pulse Ox 97.7 F 97 H 20 128/77 98 03/14/18 01:20 03/14/18 01:20 03/14/18 01:20 03/14/18 01:20 03/12/18 15:10 Temperature -Last 24 Hours Temperature 97.7 F Temperature 98.5 F Temperature 97.8 F - Labs CBC & Chem 7: 03/14/18 07:35 03/13/18 09:06 Labs: Abnormal lab results 03/13/18 03/13/18 Range/Units 09:06 09:06 WBC 17.3 H (4.5-11.0) K/mm3 RBC 2.86 L (3.65-5.03) M/mm3 Hgb 7.1 L (10.1-14.3) gm/dl Hct 21.8 L (30.3-42.9) % MCV 76 L (79-97) fl MCH 25 L (28-32) pg RDW 17.9 H (13.2-15.2) % Seg Neutrophils # Man 12.1 H (1.8-7.7) K/mm3 Monocytes # (Manual) 0.9 H (0.0-0.8) K/mm3 Carbon Dioxide 20 L (22-30) mmol/L BUN 6 L (7-17) mg/dL Calcium 7.8 L (8.4-10.2) mg/dL
--- NOTE | 2018-03-14 08:11 | Progress Note ---
Assessment and Plan A: POD#4 s/p primary section complicated by uterine atony and intraop hemorrhage; Asymptomatic anemia P: Repeat CBC. Anticipate discharge later today. Subjective - Subjective Date of service: 03/14/18 Principal diagnosis: s/p primary Interval history: Pt feeling well. Patient reports: appetite normal, voiding normally, pain well controlled, flatus , ambulating normally, no bowel movement [place]: doing well Objective - Vital Signs Latest vital signs: Vital Signs Temp Pulse Resp BP 03/14/18 01:20 97.7 F 97 H 20 128/77 03/13/18 16:25 98.5 F 100 H 20 122/67 Intake and Output 03/13/18 03/14/18 03/14/18 22:59 06:59 14:59 Intake Total 340 340 Balance 340 340 Intake: IV 100 100 UNASYN/NS 3 GM/100 ML 3 100 100 gm In 100 ml @ 200 mls/hr IV Q6HR [facility] Rx#: [id number] Oral 240 Intake, Free Water 240 Other: Total, Intake Amount 240 # Voids Void 1 2 - Exam Breasts: Present: deferred Cardiovascular: Present: Regular rate Lungs: Present: Clear to auscultation Abdomen: Present: soft (obese ) Uterus: Present: fundal height below umbilicus Extremities: Present: normal Incision: Present: intact - Labs Labs: Abnormal lab results 03/13/18 03/13/18 Range/Units 09:06 09:06 WBC 17.3 H (4.5-11.0) K/mm3 RBC 2.86 L (3.65-5.03) M/mm3 Hgb 7.1 L (10.1-14.3) gm/dl Hct 21.8 L (30.3-42.9) % MCV 76 L (79-97) fl MCH 25 L (28-32) pg RDW 17.9 H (13.2-15.2) % Seg Neutrophils # Man 12.1 H (1.8-7.7) K/mm3 Monocytes # (Manual) 0.9 H (0.0-0.8) K/mm3 Carbon Dioxide 20 L (22-30) mmol/L BUN 6 L (7-17) mg/dL Calcium 7.8 L (8.4-10.2) mg/dL
--- NOTE | 2018-03-14 08:12 | History and Physical Report ---
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: chlamydia (treated with negative test of cure ) Family/Genetic History: diabetes - Obstetrical History : 1 Medications and Allergies Allergies Allergy/AdvReac Type Severity Reaction Status Date / Time No Known Allergies Allergy Verified 03/10/18 03:17 Home Medications Medication Instructions Recorded Confirmed Last Taken Type Fluconazole [Diflucan] 150 mg PO ONCE #1 tablet 03/11/18 Unknown Rx Active Meds: Active Medications Benzocaine/Menthol (Dermoplast) 1 spray TP PRN PRN PRN Reason: Labor Pain Last Admin: 03/11/18 06:09 Dose: 1 spray Ephedrine Sulfate (Ephedrine Sulfate) 10 mg IV Q2M PRN PRN Reason: Hypotension Ferrous Sulfate (Feosol) 325 mg PO QDAY [facility] Last Admin: 03/13/18 11:46 Dose: 325 mg Hydralazine HCl (Apresoline) 5 mg IV Q30MIN PRN PRN Reason: Hypertension Hydromorphone HCl (Dilaudid) 0.5 mg IV Q5M PRN PRN Reason: Breakthrough Pain Hydromorphone HCl (Dilaudid) 0.5 mg IV Q4H PRN PRN Reason: breakthrough pain > 7/10 Fentanyl/Bupivacaine/Sodium Chlor (Fentanyl-Bupiv 2 Mcg/Ml-0.125%) 200 mcg in 100 mls @ 12 mls/hr EPIDURAL TITR [facility]; Protocol Magnesium Sulfate (Magnesium Sulfate 40gm/1000ml) 40 gm in 1,000 mls @ 25 mls/ hr IV DIRECT [facility] Last Admin: 03/10/18 15:13 Dose: 1 gm/hr, 25 mls/hr Lactated Ringer's (Lactated Ringers) 1,000 mls @ 125 mls/hr IV DIRECT [facility] Last Admin: 03/11/18 15:09 Dose: 125 mls/hr Magnesium Sulfate (Magnesium Sulfate 40gm/1000ml) 40 gm in 1,000 mls @ 25 mls/ hr IV DIRECT [facility] Oxytocin/Sodium Chloride (Pitocin/Ns 20 Unit/1000ml Drip) 20 units in 1,000 mls @ 250 mls/hr IV DIRECT [place] Ampicillin Sodium/Sulbactam Sodium (Unasyn/Ns 3 Gm/100 Ml) 3 gm in 100 mls @ 200 mls/hr IV Q6HR [facility]; Protocol Last Infusion: 03/14/18 02:08 Dose: Infused Ibuprofen (Motrin) 800 mg PO Q6H PRN PRN Reason: Pain, Mild (1-3) Last Admin: 03/13/18 06:38 Dose: 800 mg Ketorolac Tromethamine (Toradol) 30 mg IV Q6HR [facility] Stop: 03/15/18 17:59 Last Admin: 03/11/18 18:14 Dose: 30 mg Labetalol HCl (Normodyne) 10 mg IV ONCE PRN PRN Reason: Tachyarrhythmias Magnesium Hydroxide (Milk Of Magnesia) 30 ml PO QHS PRN PRN Reason: Constip Unrelieved By Senna Multi-Ingredient Ointment (Lansinoh) 1 applic TP PRN PRN PRN Reason: dryness/cracking Naloxone HCl (Narcan 2 Mg/2 Ml) 0.2 mg IV Q5M PRN PRN Reason: Respiratory sedation Naloxone HCl (Narcan 0.4 Mg/1 Ml) 0.2 mg IV Q2MIN PRN PRN Reason: Res Rate </= 8 or 02 SAT < 92% Naloxone HCl (Narcan 0.4 Mg/1 Ml) 0.1 mg IV Q2MIN PRN PRN Reason: Res Rate </= 8 or 02 SAT < 92% Ondansetron HCl (Zofran) 4 mg IV Q8H PRN PRN Reason: Nausea And Vomiting Ondansetron HCl (Zofran) 4 mg IV Q8H PRN PRN Reason: Nausea And Vomiting Oxycodone/Acetaminophen (Percocet 5/325) 2 tab PO Q4H PRN PRN Reason: Pain, Moderate (4-6) Last Admin: 03/13/18 22:58 Dose: 2 tab Promethazine HCl (Phenergan) 25 mg PO Q6H PRN PRN Reason: Nausea And Vomiting Promethazine HCl (Phenergan) 25 mg [place] Q6H PRN PRN Reason: Nausea And Vomiting Simethicone (Mylicon) 80 mg PO Q6H PRN PRN Reason: Gas pain Last Admin: 03/11/18 22:18 Dose: 80 mg Witch Kiara/Glycerin (Tucks Pad) 1 each TP PRN PRN PRN Reason: Hemorrhoids/cleansing/soothing Last Admin: 03/11/18 04:31 Dose: 1 each - Vital Signs Vital signs: Vital Signs Pulse Pulse Ox 113 H 98 03/10/18 01:53 03/10/18 01:53 Temp Pulse Resp BP Pulse Ox 97.7 F 97 H 20 128/77 98 03/14/18 01:20 03/14/18 01:20 03/14/18 01:20 03/14/18 01:20 03/12/18 15:10 Results Result Diagrams: 03/13/18 09:06 03/13/18 09:06 Abnormal lab results 03/13/18 03/13/18 Range/Units 09:06 09:06 WBC 17.3 H (4.5-11.0) K/mm3 RBC 2.86 L (3.65-5.03) M/mm3 Hgb 7.1 L (10.1-14.3) gm/dl Hct 21.8 L (30.3-42.9) % MCV 76 L (79-97) fl MCH 25 L (28-32) pg RDW 17.9 H (13.2-15.2) % Seg Neutrophils # Man 12.1 H (1.8-7.7) K/mm3 Monocytes # (Manual) 0.9 H (0.0-0.8) K/mm3 Carbon Dioxide 20 L (22-30) mmol/L BUN 6 L (7-17) mg/dL Calcium 7.8 L (8.4-10.2) mg/dL All other labs normal.
--- NOTE | 2018-03-14 08:12 | Discharge Summary ---
Providers - Providers Date of Admission: 03/10/18 01:44 Date of discharge: 03/14/18 Attending physician: RAVINDER BLACKWOOD 03/10/18 17:57 Consult to Management Internship [CONS] Routine Reason For Exam: 03/13/18 08:06 Consult to Physician [CONS] Routine Comment: Consulting Provider: SELIN CARTAGENA Physician Instructions: Reason For Exam: Leukocytosis, tachycardia , s/p section Primary care physician: RAVINDER BLACKWOOD Hospitalization Reason for admission: rupture of membranes Delivery: Procedure: section, primary low transverse Procedure details: Please see operative note. Incision: intact complications: none Discharge diagnosis: IUP at term delivered [place] baby: male Hospital course: The patient was admitted with rupture of membranes and underwent induction of labor. Ultimately the patient had a primary section secondary to cephalopelvic disproportion and nonreassuring heart tones. The surgery was complicated by intraoperative hemorrhage with an estimated blood loss of 1200 mL. During the procedure the patient became tachycardic to the 130s to 150s and immediately postoperative leave the patient's white blood cell count shot up to 34,500. The presumed diagnosis of endometritis was given the patient was started on amp, gent and clindamycin. Urine and blood cultures drawn prior to antibiotic administration were negative. The patient's tachycardia resolved with fluid administration. An infectious disease consult was ordered to guide antibiotic management. The gentamicin was discontinued and Unasyn was started. Throughout her postoperative course the patient's white blood count count trended downward and she remained afebrile. The patient met discharge criteria on postoperative day #4. She was discharged on a course of Augmentin and will follow-up in the office in 2 weeks for an incision check. Condition at discharge: Stable Disposition: TO HOME OR SELFCARE - Discharge Diagnoses (1) Uterine atony Status: Acute (2) Anemia Status: Acute Qualifiers: Anemia type: unspecified type Qualified Code(s): D64.9 - Anemia, unspecified (3) delivery delivered Status: Acute Plan - Discharge Medications Prescriptions: Amoxicillin/Potassium Clav [Augmentin 875-125 Tablet] 1 each PO BID #20 tablet Docusate Sodium [Colace] 100 mg PO BID PRN #60 capsule PRN Reason: Constipation Ferrous Sulfate 325 mg PO TID #90 tablet. Fluconazole [Diflucan] 150 mg PO ONCE #1 tablet Fluconazole [Diflucan] 150 mg PO ONCE #1 tablet Ibuprofen 600 mg PO Q6H PRN #30 tablet PRN Reason: Pain Nystatin/Triamcin [Nystatin-Triamcinolone Cream] 30 gm TP BID 14 Days cream..g. - Provider Discharge Summary Activity: routine, no sex for 6 weeks, no heavy lifting 4 weeks, no strenuous exercise Diet: routine Instructions: routine Additional instructions: [] Smoking cessation referral if applicable(refer to patient education folder for contact #) [] Refer to [facility]'s [facility] Booklet Call your doctor immediately for: * Fever > 100.5 * Heavy vaginal bleeding ( >1 pad per hour) * Severe persistent headache * Shortness of breath * Reddened, hot, painful area to leg or breast * Drainage or odor from incision. * Keep incision clean and dry at all times and follow doctor's instructions regarding bathing/showering - Follow up plan Follow up: ALEJANDRO ARAGON CNM [Advanced Practice Nurse] - 14 Days (incision check ) Forms: [facility] Discharge Summary
[2018-03-14 08:14] LABS: Basophils # (Auto) 0.1 K/mm3 (0.0-0.1); Basophils % (Auto) 0.4 % (0.0-1.8); Eosinophils # (Auto) 0.3 K/mm3 (0.0-0.4); Eosinophils % (Auto) 2.2 % (0.0-4.3); Hemoglobin 7.3 gm/dl (10.1-14.3); Mean Corpuscular HGB Conc 33 % (30-34); Mean Corpuscular Volume 76 fl (79-97); Monocytes # (Auto) 1.5 K/mm3 (0.0-0.8); Monocytes % (Auto) 10.6 % (0.0-7.3); Platelet Count 393 K/mm3 (140-440); Red Blood Count 2.89 M/mm3 (3.65-5.03); Red Cell Distribution Width 18.3 % (13.2-15.2)
[2018-03-14] MEDS: MOTRIN PO PRN (08:15)
[2018-03-14 08:19] LABS: Mean Corpuscular Hemoglobin 25 pg (28-32)
[2018-03-14 10:38] VITALS: BP 124/74
== END 2018-03-14 13:00 | disposition home or self-care (01) | DRG 765 ==
LOC: TRG 01:37 → LD 01:44 → OB 15:54
PROVIDERS: ADMIT Obstetrics & Gynecology; ATTEND Obstetrics & Gynecology
PROC: 10D00Z1 Extraction of Products of Conception, Low, Open Approach (ICD-10-PCS; principal; 2018-03-10)
PROC: 3E0234Z Introduction of Serum, Toxoid and Vaccine into Muscle, Percutaneous Approach (ICD-10-PCS; 2018-03-10)
DX: O33.9 Maternal care for disproportion, unspecified (principal); D62 Acute posthemorrhagic anemia; O86.12 Endometritis following delivery; O42.92 Full-term premature rupture of membranes, unspecified as to length of time between rupture and onset of labor; O99.824 Streptococcus B carrier state complicating childbirth; O99.02 Anemia complicating childbirth; D57.3 Sickle-cell trait; O62.2 Other uterine inertia; Z3A.39 39 weeks gestation of pregnancy; Z37.0 Single live birth; Z83.3 Family history of diabetes mellitus; O76 Abnormality in fetal heart rate and rhythm complicating labor and delivery; O67.9 Intrapartum hemorrhage, unspecified; O69.81X0 Labor and delivery complicated by cord around neck, without compression, not applicable or unspecified; Z23 Encounter for immunization
CPT/HCPCS: 36415; 80048; 82565; 83615; 83735; 84443; 84450; 84460; 84550; 85007; 85014; 85018; 85025; 85027; 85610; 85730; 86592; 86850; 86900; 86901; 87040; 87086; 88307; 93005; 93010; 99211; G0463; J0290; J0295; J0595; J0610; J0690; J1170; J1580; J1885; J2175; J2250; J2590; J2765; J3010; J3105; J3475; J7120